=== PATIENT | female | born 1940 | race Caucasian/White ===

== ENCOUNTER → 2017-07-23 | Outpatient (CLI) | payer MEDICARE ==
[~2017-07-23] MED LIST: WARF-58 PO
--- NOTE | 2017-07-23 15:47 | RADRPT ---
EXAM DATE/TIME: 07/23/2017 15:16 [place] COMPARISON: No previous studies available for comparison. INDICATIONS : Right leg edema. MEDICAL HISTORY : Atrial fibrillation. Congestive heart failure. Pulmoany embolism. Skin cancer. SURGICAL HISTORY : Tonsillectomy. Hysterectomy. Breast augmentation. ENCOUNTER: Initial ACUITY: 1 week PAIN SCORE: 0/10 LOCATION: Right leg. TECHNIQUE: Venous ultrasound of the leg was performed from the inguinal ligament to the proximal calf. Real-alessandra e, color Doppler and spectral tracing, compression and augmentation techniques were used. FINDINGS: There is normal compressibility of the deep venous system from the inguinal region to the proximal ca lf. No echogenic clot is seen in the lumen of the common femoral, femoral, popliteal, and posterior tibial veins. There is a normal response of the venous system to proximal and distal augmentation an d respiration. CONCLUSION: Normal examination. Jp Mora MD on July 23, 2017 at 15:45 Board Certified Radiologist. This report was verified electronically.
== END ==
LOC: HRAD 15:05
PROVIDERS: ATTEND Family Medicine
DX: R60.0 Localized edema (principal)
CPT/HCPCS: 93971

== ENCOUNTER 2017-08-24 09:09 | Day surgery (SDC) | payer MEDICARE ==
[~2017-08-24] VITALS: Ht 157.5 cm; Wt 69.0 kg
[2017-08-24] MEDS ORDERED: IOHEXOL 350 MG/ML 50 ML BTL (for Cath Lab) OTHER ONE (09:10)
[2017-08-24 09:38] VITALS: BP 137/78; PULSE 72; RESP 18; TEMP 98.1; O2SAT 97
[2017-08-24] MEDS ORDERED: CARV6.25 PO (09:43)
[2017-08-24] MEDS ORDERED: CALC1TAB87 PO (09:43)
[2017-08-24] MEDS ORDERED: LISI2.5T3 PO (09:43)
[2017-08-24 09:53] LABS: AUTOMATED NEUTROPHIL # 4.3 TH/MM3 (1.8-7.7); BASOPHIL % 0.8 % (0.0-2.0); EOSINOPHIL # 0.2 TH/MM3 (0-0.4); EOSINOPHIL % 2.6 % (0.0-4.0); HEMATOCRIT 38.7 % (35.0-46.0); HEMOGLOBIN 13.5 GM/DL (11.6-15.3); LYMPH % 20.9 % (9.0-44.0); LYMPHOCYTE # 1.3 TH/MM3 (1.0-4.8); MEAN CELL VOLUME 92.5 FL (80.0-100.0); MEAN CORPUSCULAR HEMOGLOBIN 32.3 PG (27.0-34.0); MEAN PLATELET VOLUME 7.8 FL (7.0-11.0); MONO % 5.3 % (0.0-8.0); MONOCYTE # 0.3 TH/MM3 (0-0.9); NEUT % 70.4 % (16.0-70.0); PLATELET COUNT 144 TH/MM3 (150-450); RED BLOOD COUNT 4.18 MIL/MM3 (4.00-5.30); RED CELL DISTRIBUTION WIDTH 14.1 % (11.6-17.2); WHITE BLOOD COUNT 6.2 TH/MM3 (4.0-11.0)
[2017-08-24 10:06] LABS: INTERNATIONAL NORMALIZED RATIO 1.7 RATIO; PROTHROMBIN TIME - PATIENT 16.7 SEC (9.8-11.6)
[2017-08-24 10:12] LABS: BICARBONATE 26.6 MEQ/L (21.0-32.0); CALCIUM 8.7 MG/DL (8.5-10.1); CREATININE 1.39 MG/DL (0.50-1.00)
[2017-08-24] MEDS ORDERED: NS 1000P @30 MLS/HR (KVO) IV SCH (10:15)
[2017-08-24] MEDS ORDERED: HEPARIN-NS/PF FLUSH BAG 1,000 ML IV FLUSH ONE (10:52)
[2017-08-24] MEDS ORDERED: MIDAZOLAM HCL 2 MG/2 ML VIAL ONE (10:52)
[2017-08-24] MEDS ORDERED: VERAPAMIL HCL 5 MG/2 ML VIAL ONE (10:53)
[2017-08-24] MEDS ORDERED: HEPARIN SODIUM - IV 10,000 UNITS/10 ML VIAL ONE (10:53)
[2017-08-24] MEDS ORDERED: SODIUM CHLOR 0.9% 1000 ML INJ 400 ML IV ONE (12:15)
--- NOTE | 2017-08-24 12:23 | CATHPROC ---
[facility] HIS Report Study Information Study Number Admission Scheduled Start Study Start [id number] Aug 24 2017 9:09AM 08/24/2017 Aug 24 2017 10:44AM [place] [facility] Cardiac Catheterization Admit Source Facility Department Other [facility] - Surveying Technician Physician and Clinical Staff Initial Rex Martin Study Coordinator Harris Muñoz RN Other cathlab, cathlab Recorder Main Mckeon RCIS(BS) Recorder Sara De León RCIS TECH2 Scrub HostAndres pelletier,RT(R) Procedures Performed Procedure Location (Site) Vessel Name Coronary Angiograms LCA Left Coronary Coronary Angiograms RCA Right Coronary Coronary Angiograms Radial (right) Radial Art. LV Gram-hand inj. LV LV Ventricle Wire insertion Fem Art (right) Femoral Art Wire insertion Fem Vein (right) Femoral Vein Wire insertion Radial (right) Radial Art. Equipment Time Cupola Repairer Description Size Mfg Part Number Used/Scraped [id number] 10:47 LAWSON PECK SWAN LUIGI CATHETER FR 7 Used *[id number] TRANSDUCER, TRUWAVE [id number] 10:47 LAWSON PECK * Used W/STOCKCOCK *[id number] TRANSDUCER, TRUWAVE [id number] 10:47 LAWSON PECK * Used W/STOCKCOCK *[id number] WIRE, HYDROSTEER 150CM [id number] 11:22 DAIG/ST. ADWOA MEDICAL 150CM Used ANGLED GLIDE *[id number] 10:47 [place] PACK, CCL CUSTOM * Used *[id number] BAND, RADIAL COMPRESSION TR [id number] 11:53 [employer]Eve[employer] MEDICAL 24CM Used SHORT 24 *[id number] 11:43 [employer]Eve[employer] MEDICAL WIRE, 3MMJ .025 * Used *[id number] 10:47 [employer]Eve[employer] MEDICAL WIRE, 3MMJ .035 180CM 180CM Used *[id number] 11:26 [employer] MEDICAL WIRE, EXCHANGE 260CM 3MMJ 260CM Used *[id number] 10:47 NAMIC MANIFOLD, 2 PORT * Used *[id number] 10:47 NAMIC MANIFOLD, 4 PORT * Used *[id number] 10:47 NYCOMED OMNIPAQUE, 350 MG, 150ML 150ML [id number] Used [id number] 10:47 THOMPSON MEDICAL BLANKET,WARM AIR CCL * Used *[id number] CATHETER, FR5 OPTITORQUE [id number] 11:15 TERUMO MEDICAL FR 5 Used RADIAL TIG 4.0 *[id number] SHEATH, FR6 TRANSRADIAL RM*[id number] 10:48 TERUMO MEDICAL FR 6 Used SLENDER 10CM *[id number] 10:47 TERUMO MEDICAL SHEATH, FR7 TERUMO (10CM) FR 7 Used *[id number] 11:27 VASCULAR SOLUTIONS PIGTAIL DUAL LUMEN CATHETER FR 6 5540 *[id number] Used History: Current Medications Medication Dosage/Unit Route Frequency Last Date/Time Taken Beta Kathy Coumadin History: Allergies Allergy Reaction simvastatin MUSCLE ACHES ADVESIVES Rash History: Risk Factors Family History of Hypertension Dyslipidemia Previous ND Previous Heart Failure Premature CAD Yes Yes Yes No Yes Prior Valve Prior PCI Prior CABG Surgery No No No Cerebrovascular Peripheral Artery Chronic Lung On Dialysis Diabetes Disease Disease Disease No No No Yes No History: Symptoms/Diagnosis Selection Items SOB History: Stress Tests Stress or Imaging Studies Performed No History: Other Disease Selection Items HTN History: Other Current Smoker Method Quit Packs a Day Years Used Pack Years No Cigarettes 30 Years Ago 1 15 15 Labs Hgb (g/dl) Hct (%) WBC (l/cumm) Platelets (thousands) 11.60-17.00 35.00-51.00 4.00-11.00 150.00-450.00 13.5 38.7 6.2 144 Glucose (mg/dl) BUN (mg/dl) Creatinine (mg/dl) BUN:Creatinine (1:x) 74.00-106.00 7.00-18.00 0.50-1.30 10.00-20.00 91 29 1.3 22.3 Na (meq/l) K (meq/l) 136.00-145.00 3.50-5.10 141 4.1 INR (PTT:PT) 0.90-1.10 1.7 CPK-MB (ng/ML) 0.50-3.60 Not Drawn Medication Medication Total Dose (Bolus/Oral) Medication Total Dosage/Unit 1% XYLOCAINE 23 mL OXYGEN 2 l/min RADIAL COCKTAIL 5 mL (Bolus) VERSED 2 mg Medications (Bolus/Oral) Medication Time Given Dosage/Unit Administered By Reason VERSED 08/24/2017 11:17:51 AM 2 mg Harris Muñoz 2 mg VERSED given in lab by Burfield, Harris, RN in Left Antecubital via Peripheral IV. Ordered by Rex Garcia. 1% XYLOCAINE 08/24/2017 11:18:00 AM 3 mL Malloy, Alphonseher 3 mL 1% XYLOCAINE given in lab by Rex Malloy in Right Radial via Subcutaneous. Ntg 200mcg Verapamil 2.5mg Heparin RADIAL COCKTAIL 08/24/2017 11:19:32 AM 5 mL (Bolus) Malloy, Taher 2000U 5 mL (Bolus) RADIAL COCKTAIL given in lab by Rex Malloy in Right Radial via Radial. Using [Solutio n Name]. Reason: Ntg 200mcg Verapamil 2.5mg Heparin 2000U. OXYGEN 08/24/2017 11:28:08 AM 2 l/min MalloyAlphonseher 2 l/min OXYGEN given in lab by Rex Malloy via Nasal. 1% XYLOCAINE 08/24/2017 11:28:49 AM 20 mL Malloy, Taher 20 mL 1% XYLOCAINE given in lab by Rex Malloy in Right Groin via Subcutaneous. Medication (Drip) Medication Time Given Dosage/Unit Concentration/Unit Diluent (ml) Solutio n IV Solutions 08/24/2017 10:44:54 AM 0 mL (IV) 500 NaCl .9 Patient arrived on IV Solutions given by brie baird in Left Antecubital via Peripheral IV. Pump /Drip Flow = 20 ml/hr using NaCl .9. Ordered by Rex Malloy. Initial Case Assessment Cardiovascular HR Rhythm NIBP Chest Pain 86 afib 147/90 0 Edema Present Skin color Skin None Normal Warm Dry Circulatory - Right Pulses Dorsalis Pedis Femoral Radial 1 3 3 Scale (0,1,2,3,4,d) Circulatory - Left Pulses Dorsalis Pedis Femoral Radial 1 Scale (0,1,2,3,4,d) Neurological State Oriented to time-place- Alert Moves all extremities person Respiration - General Respiration Rate SpO2 (%) (B/min) 15 98 Final Case Assessment Cardiovascular HR Rhythm NIBP Chest Pain 88 afib 132/77 0 Circulatory - Right Pulses Dorsalis Pedis Femoral Radial 1 3 3 Scale (0,1,2,3,4,d) Circulatory - Left Pulses Dorsalis Pedis Femoral Radial 1 Scale (0,1,2,3,4,d) Neurological State Oriented to time-place- Alert Moves all extremities person Respiration - General Respiration Rate SpO2 (%) (B/min) 11 96 Chronological Log Time Study Chronological Log 10:44:30 Patient arrived via Bed. 10:44:31 Patient Name, D.O.B, / Armband Verified By R.N. 10:44:31 Consent signed by the physician and the patient and verified by the Surveying Technician staff. 10:44:35 Pre-op and post- op instructions given; patient acknowledges understanding of instructions. 10:44:36 Verbal Stimulation=2 Physical Stimulation=2 Airway=2 Respiration=2 TOTAL=8. (0=absent, 1=li mited, 2=present) 10:44:37 Presedation assessment performed by Surveying Technician RN. 10:44:38 Allens test performed on the right radial and ulnar artery. POSITIVE. 10:44:49 Immediate Presedation assesment performed by physician. 10:44:50 Patient has been NPO for More than 6Hrs. 10:44:50 Skin Breakdown- none per patient 10:44:51 Patient Warmer Placed on the Table. 10:44:53 Ruslan Prominences Protected 10:44:54 A # 20 IV was noted in the Antecubital (left). Grade = 0 Patient arrived on IV Solutions given by cathlab, cathlab in Left Antecubital via Peripheral IV . Pump/Drip Flow = 20 10:44:54 ml/hr using NaCl .9. Ordered by Rex Malloy. 10:44:55 History and physical on the chart or being dictated. Assessment: Initial Case, HR=86 BPM, Rhythm=afib, XFSC=467/90 mmhg, Chest Pain=0, Edema=None, Color=Normal, Skin = Warm, Dry Right Pulses: Troy Ped=1, Femoral=3, Radial=3 10:51:10 Left Pulses: Troy Ped=1 Neurological: State=Alert, Ox3, BANDA Respiration: Resp=15 B/min, SpO2=98 % Vitals capture started with the following parameters, Patient=Adult, Interval=3 min, Initial Pr gvgrpl=625 mmHg, 10:51:11 Deflation Rate=5 mmHg, Cuff placed on Left Arm 10:51:12 Reference ECG taken 10:51:48 HR=97 bpm, GLED=327/90 mmhg, SpO2=97.0 %, Resp=11 B/min, Pain=0, Mirella=10, Chapa=2 10:54:48 HR=89 bpm, NQCS=317/84 mmhg, SpO2=98.0 %, Resp=12 B/min, Pain=0, Mirella=10, Chapa=2 10:58:23 HR=90 bpm, ASTU=582/90 mmhg, SpO2=97.0 %, Resp=12 B/min, Pain=0, Mirella=10, Chapa=2 10:58:33 Right Radial and groin(s) prepped with 2% chlorhexidine, and draped after a 3 min. waiting time. 11:00:45 HR=89 bpm, LGFW=318/85 mmhg, SpO2=97.0 %, Resp=10 B/min, Pain=0, Mirella=10, Chapa=2 11:02:47 MD paged 11:03:47 ZY=380 bpm, SGMP=721/93 mmhg, SpO2=97.0 %, Resp=14 B/min, Pain=0, Mirella=10, Chapa=2 11:04:35 Pressure channel 1 zeroed. 11:06:49 HR=89 bpm, RYAO=133/82 mmhg, SpO2=97.0 %, Resp=13 B/min, Pain=0, Mirella=10, Chapa=2 11:09:51 HR=72 bpm, LZME=964/77 mmhg, SpO2=97.0 %, Resp=11 B/min, Pain=0, Mirella=10, Chapa=2 11:13:16 JR=751 bpm, UVMX=429/71 mmhg, SpO2=97.0 %, Resp=16 B/min, Pain=0, Mirella=10, Chapa=2 11:14:04 MD arrived. 11:14:10 Contrast Scanned 11:14:10 Immediate Presedation assesment performed by physician. 11:15:50 HR=73 bpm, MBKG=165/86 mmhg, SpO2=97.0 %, Resp=21 B/min Time Out. Correct patient, correct procedure, correct physician, power injector not loaded with contrast with surgical 11:17:42 team present. Time Out Concurred by MD and individual staff in procedure. 11:17:49 Case Start 11:17:51 2 mg VERSED given in lab by Harris Muñoz, RN in Left Antecubital via Peripheral IV. Ordere d by Rex Malloy. 11:17:52 Verbal Stimulation=2 Physical Stimulation=2 Airway=2 Respiration=2 TOTAL=8. (0=absent, 1=li mited, 2=present) 11:18:00 3 mL 1% XYLOCAINE given in lab by Rex Malloy in Right Radial via Subcutaneous. 11:18:54 NS=194 bpm, POQL=396/80 mmhg, SpO2=95.0 %, Resp=20 B/min, Pain=0, Mirella=10, Chapa=2 11:19:10 Access site was Right Radial Artery. A SHEATH, FR6 TRANSRADIAL SLENDER 10CM FR 6 was advanced into the Radial (right) using the Perc utaneous 11:19:19 technique. 5 mL (Bolus) RADIAL COCKTAIL given in lab by Rex Malloy in Right Radial via Radial. Using [S olution Name]. Reason: 11:19:32 Ntg 200mcg Verapamil 2.5mg Heparin 2000U. 11:19:40 Saturation: Site=Ao (Aorta) , Hgb=13.5 gm/dl, Condition=Condition 1. Used in calculation. A CATHETER, FR5 OPTITORQUE RADIAL TIG 4.0 FR 5 was advanced over a wire. OMNIPAQUE, 350 MG, 150 ML 150ML 11:19:59 was used for injections. 11:21:01 The Radial (right) was injected and visualized at various angles. OMNIPAQUE, 350 MG, 150ML 150ML used. 11:21:17 Pressure channel 2 zeroed. 11:21:56 VG=616 bpm, NIBP=99/63 mmhg, SpO2=91 %, Resp=20 B/min, Pain=0, Mirella=10, Chapa=2 11:22:03 A WIRE, HYDROSTEER 150CM ANGLED GLIDE 150CM was inserted via Fem Art (right). 11:22:35 Wire removed Recorded Pressure: Ao, HR=92, Condition=Condition 1 11:23:12 (Aorta) Ao 104/65/84 11:23:32 The LCA was injected and visualized at various angles. OMNIPAQUE, 350 MG, 150ML 150ML used . 11:24:44 ON=716 bpm, HTEI=011/71 mmhg, SpO2=88.0 %, Resp=23 B/min, Pain=0, Mirella=10, Chapa=2 After removing the current catheter a PIGTAIL DUAL LUMEN CATHETER FR 6 was advanced over a WIRE , EXCHANGE 11:26:05 260CM 3MMJ 260CM. 11:27:47 PK=620 bpm, ILLY=432/68 mmhg, SpO2=91 %, Resp=10 B/min, Pain=0, Mirella=10, Chapa=2 11:28:08 2 l/min OXYGEN given in lab by Rex Malloy via Nasal. Recorded Pressure: LV, Ao, HR=81, Condition=Condition 1 11:28:22 (Left Ventricle) LV 111/10/15, (Aorta) Ao 111/61/83 11:28:49 20 mL 1% XYLOCAINE given in lab by Rex Malloy in Right Groin via Subcutaneous. 11:30:47 HR=74 bpm, XJDF=547/80 mmhg, SpO2=89.0 %, Resp=15 B/min, Pain=0, Mirella=10, Chapa=2 11:30:59 Access site was Right Femoral Vein. 11:31:23 A SHEATH, FR7 TERUMO (10CM) FR 7 was advanced into the Fem Vein (right) using the Percutane ous technique. 11:31:40 A SWAN LUIGI CATHETER FR 7 was inserted via Fem Vein (right) 11:33:51 HR=94 bpm, OVYA=010/69 mmhg, SpO2=96.0 %, Resp=16 B/min, Pain=0, Mirella=10, Chapa=2 11:36:49 DI=381 bpm, MOOI=190/84 mmhg, SpO2=93.0 %, Resp=15 B/min, Pain=0, Mirella=10, Chapa=2 Recorded Pressure: LV, MPA, HR=77, Condition=Condition 1 11:38:46 (Left Ventricle) LV 128/10/15, (Main Pulmonary Artery) MPA 48/32/40 Recorded Pressure: MPA, HR=81, Condition=Condition 1 11:38:49 (Main Pulmonary Artery) MPA 49/34/41 11:39:13 The Recorder is being relieved by Sara De León RCIS TECH2. 11:39:52 HR=98 bpm, WOAX=718/74 mmhg, SpO2=92 %, Resp=14 B/min Thermo CO: CO=3.0 l/m, HR=77 bpm, Condition=Condition 1. Used in calculation. 11:40:08 Equipment: Description and Size=SWAN LUIGI CATHETER FR 7, Type=Bath Probe, CC=0.579 Injectant: Temp=19.0 - 22.0 Celsius, Volume=10.0 ml Recorded Pressure: MPA, HR=87, Condition=Condition 1 11:40:17 (Main Pulmonary Artery) MPA 59/28/43 Thermo CO: CO=2.9 l/m, HR=80 bpm, Condition=Condition 1. Used in calculation. 11:41:10 Equipment: Description and Size=SWAN LUIGI CATHETER FR 7, Type=Bath Probe, CC=0.579 Injectant: Temp=19.0 - 22.0 Celsius, Volume=10.0 ml 11:42:23 A WIRE, 3MMJ .025 * was inserted via Fem Vein (right). 11:42:52 HR=93 bpm, TJKH=868/82 mmhg, SpO2=92.0 %, Resp=22 B/min Recorded Pressure: MPA, HR=93, Condition=Condition 1 11:43:43 (Main Pulmonary Artery) MPA 57/29/43 Recorded Pressure: PCW, HR=83, Condition=Condition 1 11:45:07 (Pulmonary Capillary Wedge) PCW 34/35/30 Recorded Pressure: LV, PCW, HR=72, Condition=Condition 1 11:45:24 (Left Ventricle) LV 136/9/16, (Pulmonary Capillary Wedge) PCW 31/32/28 11:46:21 HR=80 bpm, PYRR=314/91 mmhg, SpO2=93.0 %, Resp=17 B/min Recorded Pressure: RV, HR=68, Condition=Condition 1 11:46:35 (Right Ventricle) RV 57/8/15 Recorded Pressure: RA, HR=68, Condition=Condition 1 11:46:47 (Right Atrium) RA 16/17/15 11:46:59 Lasara Luigi Catheter Removed 11:48:05 The LV was manually injected with 10 cc's and visualized. OMNIPAQUE, 350 MG, 150ML 150ML us ed. 11:48:25 The LV was manually injected with 10 cc's and visualized. OMNIPAQUE, 350 MG, 150ML 150ML us ed. Recorded Pressure: LV, Ao, HR=68, Condition=Condition 1 11:48:39 (Left Ventricle) LV 143/12/17, (Aorta) Ao 148/81/109 11:48:50 HR=71 bpm, TZRR=961/91 mmhg, SpO2=91.0 %, Resp=22 B/min 11:49:43 A WIRE, EXCHANGE 260CM 3MMJ 260CM was inserted via Radial (right). After removing the current catheter a CATHETER, FR5 OPTITORQUE RADIAL TIG 4.0 FR 5 was advanced over a WIRE, 11:50:04 EXCHANGE 260CM 3MMJ 260CM. 11:51:06 The RCA was injected and visualized at various angles. OMNIPAQUE, 350 MG, 150ML 150ML used . 11:51:55 HR=78 bpm, LTPX=547/85 mmhg, SpO2=93 %, Resp=17 B/min 11:52:57 Catheter was removed over wire. 11:54:40 Case End 11:54:45 Sheath removed; pressure applied to access site. 11:55:30 HR=84 bpm, BXBN=414/70 mmhg, SpO2=93.0 %, Resp=13 B/min 11:57:54 Echo called for stat JOCELYN. 11:57:57 HR=75 bpm, JCOM=632/76 mmhg, SpO2=92.0 %, Resp=20 B/min 12:00:53 HR=98 bpm, HKAB=695/72 mmhg, SpO2=94.0 %, Resp=19 B/min 12:03:54 HR=72 bpm, RLWH=361/78 mmhg, SpO2=95.0 %, Resp=20 B/min 12:04:17 Hemostasis obtained. 12:04:30 Sterile dressing applied to site Radial Compression Device Used. 10 mLs of air placed in BAND, RADIAL COMPRESSION TR SHORT 24 24 CM. Affected 12:04:43 hand 95 % O2 saturation. 12:06:58 HR=88 bpm, GXAF=230/77 mmhg, SpO2=95 %, Resp=16 B/min, Pain=0, Mirella=10, Chapa=2 12:08:22 No case complications noted. 12:08:23 Cine recording checked. 12:08:25 Bedside Report will be given. Assessment: Final Case, HR=88 BPM, Rhythm=afib, HMOL=870/77 mmhg, Chest Pain=0 Right Pulses: Troy Ped=1, Femoral=3, Radial=3 12:08:30 Left Pulses: Troy Ped=1 Neurological: State=Alert, Ox3, BANDA Respiration: Resp=11 B/min, SpO2=96 % 12:09:56 HR=79 bpm, XEKN=773/78 mmhg, SpO2=98.0 %, Resp=16 B/min 12:12:58 HR=86 bpm, EIIA=737/68 mmhg, SpO2=98.0 %, Resp=21 B/min, Pain=0, Mirella=10, Chapa=2 12:13:28 Vitals capture stopped. 12:17:31 Patient moved to bed 12:18:22 Patient transported to DOCU. End Study - Contrast Media Used In Study Contrast Total Opened (mL) Total Used (mL) Total Wasted (mL) Omnipaque 30 30 0 End Study - Maximum Contrast Load Max Contrast Load (mL) 265.4 End Study - Radiation Exposure Fluoro Time (minutes) 12.0 End Study - Sheaths Sheaths Pulled By Sheath Hold Time (min) Andres Rose End Study - Patient Disposition Complications Transferred To No Telemetry Bed
[2017-08-24] MEDS ORDERED: PROPOFOL 200 MG/20 ML AMP ONE (12:46)
--- NOTE | 2017-08-24 22:49 | EKG ---
Date Performed: 08/24/2017 Time Performed: 09:47:58 PTAGE: 77 years EKG: Atrial fibrillation. Severe right axis deviation Incomplete RBBB Lateral infarct - age unde termined Right ventricular hypertrophy Septal T wave changes are probably due to ventricular hypertro phy Abnormal ECG PREVIOUS TRACING : 07/07/2012 08.51 DOCTOR: Celestina Rubio Interpretating Date/Time 08/24/2017 22:46:01
--- NOTE | 2017-08-25 10:44 | MA ---
cc: RINA RYAN M.D. DATE 08/24/2017 INDICATIONS Patient with chest pain and shortness of breath. Abnormal stress test and possible significant mitral stenosis. PROCEDURE PERFORMED Right and left heart catheterization, angiogram and left ventriculogram. PROCEDURE NOTE After obtaining informed consent, the patient in a fasting state was brought to the clinical laboratory manager. The right radial area was sterilized and draped with sterile drapes. 1% Xylocaine was used to locally anesthetize the area. A 6 Russian sheath was used to access the right radial artery. A 6 Russian sheath was used to access the right femoral vein. A [place] to provide pressure on the right side and cardiac output by thermodilution and Tigr catheter to intubate the left main and to intubate the right coronary artery. A pigtail was used to perform left ventriculogram and simultaneous pressure gradient across the aortic valve and gradient between the wedge pressure and the left ventricular end-diastolic pressure. At the end of the procedures, all hardware was taken out, TR band applied. She was sent back to her room in stable condition. No complications. RESULTS The left main coronary artery is a medium size vessel which bifurcates into the left anterior descending artery and left circumflex coronary artery. The left main has no significant disease. The left anterior descending coronary artery has about a 20% stenosis proximally. The left circumflex coronary artery has no significant disease. The right coronary artery has some calcification, but no obstructive lesions. It was a dominant vessel. LEFT VENTRICULOGRAM The ejection fraction is estimated to appeared to be moderately reduced. It ranged about 40%. It was somewhat technically difficult due to non-complete filling of the left ventricle with contrast. No significant pressure gradient across the aortic valve, only 5 mmHg, mean pressure gradient was valve area calculated to be 2.3 cm/2 consistent with no significant stenosis. Cardiac output by thermodilution was 3.0. The mean pressure gradient between the wedge and the left ventricular end-diastolic pressure was 9.2 mmHg. The mitral valve area was 1.2 cm/2 consistent with significant stenosis. The right heart pressures were as follows: The pulmonary artery pressure was 57/29. Wedge pressure was mean of 28. Right ventricular pressure 57/8. Right ventricular pressure mean of 15. Aortic pressure 158/80. Left ventricular end-diastolic pressure was 12. RECOMMENDATIONS We will obtain an echocardiogram to document the valvular structures and will be followed by further recommendation. She tolerated the procedure well. No complications. POSTOPERATIVE DIAGNOSIS 1. No significant coronary artery disease. 2. Reduced systolic performance of the left ventricle. 3. No significant aortic valve disease. 4. Significant possibly severe mitral stenosis. MD YEIMY Friedman/TIMUR /12:07 PM /10:26 AM
--- NOTE | 2017-08-25 11:22 | CF ---
cc: RINA RYAN M.D. DATE OF SERVICE 08/24/2017 INDICATIONS The patient is a 78-year-old female with possible mitral stenosis. PROCEDURE PERFORMED Transesophageal echocardiogram PROCEDURAL NOTE After obtaining informed consent with the patient in the fasting state, she was brought to the labor relations analyst. In the holding area, the anesthesia department took care of sedation. Transesophageal echocardiogram was performed with no complication. She tolerated the procedure well. Mitral valve was well visualized. Mild to moderate thickening of the leaflets. Eccentric jet of the mitral valve there was moderate insufficiency. The dilated left atrium moderately reduced systolic performance of the left ventricle. The mitral valve area is opening and does not seem to have any severe stenosis. The aortic valve was mildly to moderately thickened. No effusion and no vegetation seen. MD YEIMY Friedman/TIMUR /1:01 PM /10:55 AM
== END 2017-08-24 17:07 | disposition home or self-care (01) ==
LOC: HDOC 09:09 → HDIC 09:10 → HDOC 17:07
PROVIDERS: ATTEND Internal Medicine Cardiovascular Disease
DX: R07.9 Chest pain, unspecified (principal); I48.91 Unspecified atrial fibrillation; I34.0 Nonrheumatic mitral (valve) insufficiency; I36.9 Nonrheumatic tricuspid valve disorder, unspecified; I10 Essential (primary) hypertension; I42.9 Cardiomyopathy, unspecified; J44.9 Chronic obstructive pulmonary disease, unspecified; Z79.01 Long term (current) use of anticoagulants; Z87.891 Personal history of nicotine dependence
CPT/HCPCS: 01922; 80048; 85025; 85610; 85730; 93005; 93312; 93320; 93325; 93460; 99152; 99153; C1769; C1893; J1644; J2250; J3010; Q9967

== ENCOUNTER → 2017-12-09 | Outpatient (CLI) | payer MEDICARE ==
[~2017-12-09] MED LIST changes: +CALC1TAB87 PO; +CARV6.25 PO; +LISI2.5T3 PO
== END ==
LOC: HRSP 10:39
PROVIDERS: ATTEND Family Medicine
DX: R06.00 Dyspnea, unspecified (principal)
CPT/HCPCS: 94060